=== PATIENT | male | born 1965 | race Caucasian/White ===

== ENCOUNTER 2017-06-03 20:04 | Emergency (ER) | payer SELFPAY ==
[2017-06-03 20:23] VITALS: BP 124/72; BMI 39.2
--- NOTE | 2017-06-03 23:54 | RAD ---
EXAM: Abdomen x-ray INDICATION: COMPARISION: No priors TECHNIQUE: AP view, single view FINDINGS: The bowel loops are nonobstructed. No abnormal mass or calcification is identified. The regional skel eton is intact. IMPRESSION: Normal single view abdominal x-ray examination Reported By:
--- NOTE | 2017-06-04 00:06 | DR.GENAD ---
HPI - PCP Primary Care Physician: NFD - HPI Comment HPI Comment: No BM in 5 days - Complaint/Symptoms Chief Complaint Doctors Comments: No BM in past 5 days. Straining with attempts. + blood in commode with last couple of attempts. He denies abdominal pain, nausea or vomitting Chief Complaint:: "For about 5 days I have not been able to have a bowl movement. I have tried prune juice but it hasn't helped. The past couple of times I have tried to pass a movement I have saw some brown/red blood in the toilet." Self Treatment fo Chief Complaint: Exlax. Prune juice - Nurses notes reviewed Nurses Notes Review: Yes - Source History Provided: Patient - Mode of Arrival Mode of Arrival: Ambulatory - Timing Onset of Chief Complaint: 05/29/17 Came on: Gradually - Duration How lon Duration: Days - Modifying Factors Worsens:: nothing Improves:: nothing - Associated Signs and Symptoms Associated Signs and Symptoms: none PMH - PMH Past Medical History: No Past Surgical History: Yes Surgical History: Ortho Surgery Past Surgical History Comment: neck - Family History History of Family Medical Conditions: Yes Family Medical History: Diabetes Mellitus - Social History Does patient currently use any type of tobacco product: No Have you used tobacco products in the last 12 months: No Type of Tobacco Use: None Does any household member use tobacco: No Alcohol Use: None Do you use any recreational Drugs:: No Lives With: Alone Lives Where: Home - infectious screening In the last 2 months have you had wt loss of >10#?: NO Have you had fever, night sweats or hemotysis?: No Have you traveled outside the country in the last 6 months?: No Isolation: Standard ROS - Review of Systems Constitutional: No Symptoms Reported Eyes: No Symptoms Reported ENTM: No Symptoms Reported Respiratoy: No Symptoms Reported Cardiovascular: No Symptoms Reported Gastrointestinal/Abdominal: Constipation Genitourinary: No Symptoms Reported Neurological: No Symptoms Reported Musculoskeletal: No Symptoms Reported Integumentary: No Symptoms Reported Hematologic/Lymphatic: No Symptoms Reported Endocrine: No Symptoms Reported Psychiatric: No Symptoms Reported All Other Systems: Reviewed and Negative PE - Vital Signs Vitals: Temperature 97.4 F Pulse Rate 104 Respiratory Rate 18 Blood Pressure [Right Arm] 132/72 Blood Pressure 124/72 O2 Sat by Pulse Oximetry 88 - General Limitations: No Limitations General Appearance: Alert, In No Apparent Distress - Head Head Exam: Normal Inspection - Eyes Eye exam: Normal Appearance - ENT ENT Exam: Normal Exam External Ear Exam: Normal External Inspection TM/Canal Exam: Bilateral Normal Nose Exam: Normal Nose Exam Mouth Exam: Normal Inspection Throat Exam: Normal Inspection - Neck Neck Exam: Normal Inspection - Chest Chest Inspection: Normal Inspection - Respiratory Respiratory Exam: Normal Lung Sounds Bilat Respiratory Exam: Bilateral Clear to Auscultation - Cardiovascular Cardiovascular Exam: Regular Rate, Normal Rhythm - Abdominal Exam Abdominal Exam: Normal Inspection, Normal Bowel Sounds, Soft - Extremities Extremities Exam: Normal Inspection - Back Back Exam: Normal Inspection - Neurologic Neurological Exam: Alert, Oriented X3 - Psychiatric Psychiatric Exam: Normal Affect, Normal Mood - Skin Skin Exam: Warm, Dry, Intact, Normal Color ROR - XRAY XRAY Interpreted by: Radiologist XRAY Findings: non-obstructive bowel loops. Normal single view abdominal x-ray. - Diagnosis Discharge Problem: Constipation - Discharge Plan Disposition: 01 HOME, SELF-CARE Condition: Stable - Follow ups/Referrals Follow ups/Referrals: NFD,None [Primary Care Provider] - 3 days - Instructions
[2017-06-04] MEDS ORDERED: DULCOLAX TAB EC 5 MG PO ONE (00:07)
== END 2017-06-04 00:28 | disposition home or self-care (01) ==
LOC: ER 20:04
DX: K59.09 Other constipation (principal)
CPT/HCPCS: 74000; 99282